=== PATIENT | male | born 1980 | race Caucasian/White ===

== ENCOUNTER 2016-10-17 22:14 | Emergency (ER) | payer OTHER, MEDICAID ==
[2016-10-17 22:20] VITALS: RESP 16; TEMP 98.1
--- NOTE | 2016-10-17 22:29 | EDPHY ---
H & P Stated Complaint: RIGHT KNEE PAIN S/P POPPED TO RIGHTSIDE Time Seen by Provider: 10/17/16 22:20 HPI/ROS: Chief Complaint: Right knee injury HPI: 36-year-old male was playing soccer when he was checked by another player coming from his right side. Patient had his foot planted and inverted his knee with immediate onset of pain. He has not been weight-bearing since. He did immediately apply ice. No prior injuries in the past. No other injuries at this time. ROS: 10 point Review of Systems is negative except as noted in the HPI. PMH: None medications: None Allergies: None Social History: [No] smoking, occasional alcohol, [ no recreational drug use] Family History: [non-contributory] Physical Exam: General: Awake, alert, no acute distress Right leg: No hip tenderness, full range of motion of pain Right knee: There is no significant swelling. He has no tenderness along the medial or lateral collateral ligaments. He has no tenderness with loading or the medial lateral menisci. He is able to flex past 90. There is no anterior drawer sign. He has no bony tenderness over the tibial plateau, proximal fibula. No tenderness over the distal femur. No patellar tenderness or dislocation. He has 2+ DP and PT pulses. Capillary refills less than 2 seconds. Sensations intact in all dermatomes Skin: No rash - Personal History Current Tetanus/Diphtheria Vaccine: Yes Current Tetanus Diphtheria and Acellular Pertussis (TDAP): Yes - Medical/Surgical History Hx Asthma: No Hx Chronic Respiratory Disease: No Hx Diabetes: No Hx Cardiac Disease: No Hx Renal Disease: No Hx Cirrhosis: No Hx Alcoholism: No Hx HIV/AIDS: No Hx Splenectomy or Spleen Trauma: No Other PMH: DENIES - Social History Smoking Status: Never smoked Constitutional: Initial Vital Signs Temperature (C) 36.7 C 10/17/16 22:17 Heart Rate 89 10/17/16 22:17 Respiratory Rate 16 10/17/16 22:17 Blood Pressure 124/91 H 10/17/16 22:17 O2 Sat (%) 96 10/17/16 22:17 O2 Delivery Mode Room Air Allergies/Adverse Reactions: No Known Allergies Allergy (Unverified 10/17/16 22:19) Home Medications: Medication Instructions Recorded NK [No Known Home Meds] 10/17/16 Medical Decision Making - Diagnostics Imaging Results: Right knee x-ray: No acute bony abnormalities noted per my interpretation. Imaging: I viewed and interpreted images myself ED Course/Re-evaluation: Patient placed in a knee immobilizer and crutches. 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 Also given the referral to the on-call orthopedist. Departure - Departure Disposition: Home, Routine, Self-Care Clinical Impression: Knee sprain Condition: Good Instructions: Knee Sprain (ED), Knee Immobilizer (ED), Crutch Instructions (ED) Additional Instructions: Follow up with Orthopedics in 2-3 days, call for next available appointment. Apply ice for 20 minutes 3 to 4 times a day. UA take ibuprofen alternating with acetaminophen as needed for pain. Return for increasing pain, numbness, weakness, redness, fevers, chills, or any other concerns. Referrals: Shellie Dobbs MD [Medical Doctor] - As per Instructions
[2016-10-18 00:09] VITALS: BP 110/74; PULSE 72; O2SAT 97
== END 2016-10-18 00:09 | disposition home or self-care (01) ==
DX: S83.92XA Sprain of unspecified site of left knee, initial encounter (principal); X58.XXXA Exposure to other specified factors, initial encounter; Y99.8 Other external cause status; Y93.66 Activity, soccer
CPT/HCPCS: L1830